=== PATIENT | male | born 1980 | race Caucasian/White ===

== ENCOUNTER 2017-05-23 11:16 | Inpatient (IN) | payer OTHER ==
[~2017-05-23] VITALS: Ht 182.9 cm; Wt 82.8 kg
[2017-05-23] VITALS (292 sets, daily range): BP systolic 103–114; BP diastolic 67–72; PULSE 101–103; TEMP 98.9; O2SAT 94–100
[~2017-05-23 11:16] MED LIST: ALEVE 220MG220 MG PO; FLORINEF ACETA0.1 MG PO; INDOCIN50 MG PO; LEVOXYL0.2 MG PO; LORTAB 7.5/5001 TAB PO; MOTRIN 800800 MG/TAB PO; PERCOCET 325 MG1 TA2 PO; PREDNISONE 2.52.5 MG PO; PREDNISONE 5MG5 MG PO; ZITHROMAX 250M250 MG PO; ZOFRAN ODT8 MG PO
[2017-05-23 12:08] LABS: HEMATOCRIT 44.8 % (42.0-52.0); MEAN CELL VOLUME 84 fl (80.0-100.0); MEAN CORPUSCULAR HEMOGLOBIN 30 pg (27.0-31.0); MEAN CORPUSCULAR HGB CONC 36 g/dl (33.0-37.0); MEAN PLATELET VOLUME 12.6 fl (7.4-10.4); PLATELET COUNT 223 K/mm3 (130-400); RED BLOOD COUNT 5.31 M/mm3 (4.20-5.60); WHITE BLOOD COUNT 15.5 K/mm3 (4.8-10.8)
[2017-05-23 12:13] LABS: ADJUSTED CALCIUM 10.5 mg/dL (8.4-10.2); ALBUMIN 5.1 gm/dL (3.5-5.0); BILIRUBIN,TOTAL 7.2 mg/dL (0.0-1.0); CALCIUM 11.4 mg/dL (8.4-10.2); CREATININE, serum 3.66 mg/dL (0.66-1.25); MAGNESIUM 1.5 mg/dL (1.6-2.3); PHOSPHOROUS 3.8 mg/dL (2.5-4.5); POTASSIUM 4.2 mmol/L (3.4-5.0); TOTAL PROTEIN 9.8 gm/dL (6.4-8.2)
[2017-05-23 12:14] LABS: ADD PATHOLOGY DIFF REVIEW NO
[2017-05-23] MEDS ORDERED: SYNTHROID0.05 MG/TA PO (12:29)
[2017-05-23 12:43] LABS: THYROID STIMULATING HORMONE 7.78 uIU/mL (0.465-4.680)
[2017-05-23 13:44] LABS: BAND 13 % (0-10); EOSINOPHIL 2 % (0-4); LYMPHOCYTE 29 % (20.0-51.0); NEUTROPHILS 45 % (42.0-75.2); TOTAL CELLS COUNTED 100
[2017-05-23 13:45] LABS: PLATELET ESTIMATE NORMAL (NORMAL)
[2017-05-23 13:56] LABS: COLLECTION METHOD CLEAN CATCH
[2017-05-23 14:21] LABS: MUCOUS Present /lpf; PH 5 (5-8); SQUAMOUS EPITHELIAL None Seen /hpf; URINE APPEARANCE Clear; URINE BACTERIA None Seen /hpf; URINE BILIRUBIN Negative (NEGATIVE); URINE BLOOD Negative (NEGATIVE); URINE COLOR Yellow; URINE GLUCOSE Negative (NEGATIVE); URINE KETONE 1+ (NEGATIVE); URINE LEUKOCYTE ESTERASE Negative (NEGATIVE); URINE PROTEIN(semi-quant) Negative (NEGATIVE); URINE UROBILINOGEN Negative (NEGATIVE)
[2017-05-23] MEDS ORDERED: PREDNISONE 2.52.5 MG PO (16:06)
[2017-05-24] VITALS (249 sets, daily range): BP systolic 97–111; BP diastolic 56–66; PULSE 73–101; TEMP 98–98.9; O2SAT 96–100
[2017-05-24 05:51] LABS: BASO % 0.1 % (0.0-2.0); GRAN % 84.6 % (42.2-75.2); LYMPH # 0.6 (1.2-3.4); LYMPH % 7.1 % (20.0-51.0); MEAN CELL VOLUME 85 fl (80.0-100.0); MEAN CORPUSCULAR HGB CONC 35 g/dl (33.0-37.0); MONO # 0.6 (0.1-0.6); MONO % 7.7 % (1.7-9.3); PLATELET COUNT 144 K/mm3 (130-400); RED BLOOD COUNT 3.64 M/mm3 (4.20-5.60); WHITE BLOOD COUNT 8.2 K/mm3 (4.8-10.8)
[2017-05-24 05:58] LABS: HEMATOCRIT 31.1 % (42.0-52.0); MEAN CORPUSCULAR HEMOGLOBIN 30 pg (27.0-31.0)
[2017-05-24 06:01] LABS: ADJUSTED CALCIUM 8.9 mg/dL (8.4-10.2); ALBUMIN 3.4 gm/dL (3.5-5.0); BILIRUBIN,TOTAL 1.1 mg/dL (0.0-1.0); CALCIUM 8.4 mg/dL (8.4-10.2); CREATININE, serum 1.43 mg/dL (0.66-1.25); POTASSIUM 4.4 mmol/L (3.4-5.0); TOTAL PROTEIN 6.9 gm/dL (6.4-8.2)
[2017-05-25 05:48] VITALS: BP 106/63; PULSE 81; TEMP 98.9
[2017-05-25 07:32] LABS: BASO % 0.2 % (0.0-2.0); EOS % 0.3 % (0-4.0); GRAN % 77.1 % (42.2-75.2); LYMPH # 0.9 (1.2-3.4); MEAN CELL VOLUME 88 fl (80.0-100.0); MEAN CORPUSCULAR HGB CONC 33 g/dl (33.0-37.0); MEAN PLATELET VOLUME 12.6 fl (7.4-10.4); MONO # 0.5 (0.1-0.6); MONO % 8.1 % (1.7-9.3); PLATELET COUNT 135 K/mm3 (130-400); RED BLOOD COUNT 3.28 M/mm3 (4.20-5.60); WHITE BLOOD COUNT 6.4 K/mm3 (4.8-10.8)
[2017-05-25 07:58] LABS: HEMOGLOBIN 9.7 g/dl (13.5-18.0); MEAN CORPUSCULAR HEMOGLOBIN 30 pg (27.0-31.0)
[2017-05-25 07:59] LABS: ADJUSTED CALCIUM 9.4 mg/dL (8.4-10.2); ALBUMIN 3.2 gm/dL (3.5-5.0); BILIRUBIN,TOTAL 0.6 mg/dL (0.0-1.0); CALCIUM 8.8 mg/dL (8.4-10.2); CREATININE, serum 0.99 mg/dL (0.66-1.25); POTASSIUM 4.2 mmol/L (3.4-5.0); TOTAL PROTEIN 6.6 gm/dL (6.4-8.2)
[2017-05-25 10:33] VITALS: BP 103/63; PULSE 92; TEMP 97.2
== END 2017-05-25 11:35 | disposition home or self-care (01) | DRG 644 ==
LOC: COL.ER 11:16 → ICU 12:32 → SURG 05-24 14:59
PROVIDERS: Emergency Medicine; Family Medicine
DX: E27.2 Addisonian crisis (principal); E87.1 Hypo-osmolality and hyponatremia; N17.9 Acute kidney failure, unspecified; E05.00 Thyrotoxicosis with diffuse goiter without thyrotoxic crisis or storm; E86.0 Dehydration; A08.4 Viral intestinal infection, unspecified
CPT/HCPCS: 99223-AI; 99233-AI; 99239; J0696; J1650; J1720; J7030; J7512

== ENCOUNTER 2017-07-10 10:02 | Emergency (ER) | payer OTHER ==
[~2017-07-10] VITALS: Ht 182.9 cm; Wt 81.8 kg
[~2017-07-10 10:02] MED LIST changes: +SYNTHROID0.05 MG/TA PO
[2017-07-10 10:10] VITALS: TEMP 98
[2017-07-10] MEDS ORDERED: TYLENOL W/COD1 UDTAB PO (10:44)
[2017-07-10] MEDS ORDERED: AMOXICILLIN 8751 TAB PO (10:44)
[2017-07-10 10:53] LABS: HEMATOCRIT 43.9 % (42.0-52.0); HEMOGLOBIN 15.7 g/dl (13.5-18.0); MEAN CELL VOLUME 83 fl (80.0-100.0); MEAN CORPUSCULAR HEMOGLOBIN 30 pg (27.0-31.0); MEAN CORPUSCULAR HGB CONC 36 g/dl (33.0-37.0); PLATELET COUNT 245 K/mm3 (130-400); REDCELL DISTRIBUTION WIDTH-CV 12.3 % (11.5-14.5)
[2017-07-10 11:05] LABS: BILIRUBIN,TOTAL 2.3 mg/dL (0.0-1.0); CREATININE, serum 1.65 mg/dL (0.66-1.25); POTASSIUM 4.3 mmol/L (3.4-5.0); TOTAL PROTEIN 9.7 gm/dL (6.4-8.2)
[2017-07-10 11:11] LABS: BAND 8 % (0-10); EOSINOPHIL 3 % (0-4); LYMPHOCYTE 19 % (20.0-51.0); NEUTROPHILS 54 % (42.0-75.2); PLATELET ESTIMATE NORMAL (NORMAL)
[2017-07-10 11:17] LABS: C-REACTIVE PROTEIN 21.5 mg/dL (0.0-0.9)
[2017-07-10 11:21] LABS: INFLUENZA A NEGATIVE; INFLUENZA B NEGATIVE
[2017-07-10 11:33] LABS: COLLECTION METHOD CLEAN CATCH
[2017-07-10 11:40] LABS: MUCOUS Present /lpf; PH 5 (5-8); SQUAMOUS EPITHELIAL None Seen /hpf; URINE APPEARANCE Clear; URINE BACTERIA None Seen /hpf; URINE BILIRUBIN Negative (NEGATIVE); URINE BLOOD Negative (NEGATIVE); URINE COLOR Yellow; URINE GLUCOSE Negative (NEGATIVE); URINE KETONE 1+ (NEGATIVE); URINE LEUKOCYTE ESTERASE Negative (NEGATIVE); URINE NITRATE Negative (NEGATIVE); URINE PROTEIN(semi-quant) Negative (NEGATIVE); URINE RBC 0-2 /hpf; URINE UROBILINOGEN Negative (NEGATIVE)
[2017-07-10] MEDS ORDERED: ZOFRAN ODT4 MG PO (12:02)
[2017-07-10 12:22] VITALS: BP 125/75; PULSE 96
== END 2017-07-10 12:22 | disposition home or self-care (01) ==
LOC: COL.ER 10:02
PROVIDERS: Family Medicine
DX: R11.10 Vomiting, unspecified (principal); E86.0 Dehydration
CPT/HCPCS: J2405; J2930; J7030

== ENCOUNTER 2019-06-06 09:20 | Emergency (ER) | payer OTHER ==
[~2019-06-06] VITALS: Ht 182.9 cm; Wt 79.7 kg
[~2019-06-06 09:20] MED LIST changes: +AMOXICILLIN 8751 TAB PO; +TYLENOL W/COD1 UDTAB PO; +ZOFRAN ODT4 MG PO
[2019-06-06 10:03] LABS: HEMATOCRIT 42.6 % (42.0-52.0); HEMOGLOBIN 14.8 g/dl (13.5-18.0); MEAN CELL VOLUME 84 fl (80.0-100.0); MEAN CORPUSCULAR HEMOGLOBIN 29 pg (27.0-31.0); MEAN CORPUSCULAR HGB CONC 35 g/dl (33.0-37.0); MEAN PLATELET VOLUME 11.6 fl (7.4-10.4); PLATELET COUNT 182 K/mm3 (130-400); RED BLOOD COUNT 5.07 M/mm3 (4.20-5.60); REDCELL DISTRIBUTION WIDTH-CV 12.1 % (11.5-14.5)
[2019-06-06 10:10] LABS: ALBUMIN 4.8 gm/dL (3.5-5.0); BILIRUBIN,TOTAL 5.4 mg/dL (0.0-1.0); CALCIUM 10.4 mg/dL (8.4-10.2); CREATININE, serum 2.18 (0.66-1.25); POTASSIUM 4.5 mmol/L (3.4-5.0)
[2019-06-06 10:22] LABS: C-REACTIVE PROTEIN 20.6 mg/dL (0.0-0.9)
[2019-06-06 10:32] LABS: STREP SCREEN POSITIVE
[2019-06-06 10:39] LABS: BAND 15 % (0-10); LYMPHOCYTE 13 % (20.0-51.0); NEUTROPHILS 64 % (42.0-75.2)
[2019-06-06 10:41] LABS: PLATELET ESTIMATE NORMAL (NORMAL)
[2019-06-06 10:43] LABS: COLLECTION METHOD CLEAN CATCH
[2019-06-06 11:07] LABS: MUCOUS Present /lpf; PH 5 (5-8); SQUAMOUS EPITHELIAL None Seen /hpf; URINE APPEARANCE Clear; URINE BACTERIA None Seen /hpf; URINE BILIRUBIN Negative (NEGATIVE); URINE BLOOD Negative (NEGATIVE); URINE COLOR Amber; URINE GLUCOSE Negative (NEGATIVE); URINE KETONE Trace (NEGATIVE); URINE LEUKOCYTE ESTERASE Negative (NEGATIVE); URINE NITRATE Negative (NEGATIVE); URINE PROTEIN(semi-quant) Negative (NEGATIVE); URINE RBC 0-2 /hpf; URINE UROBILINOGEN Negative (NEGATIVE)
[2019-06-06 12:37] VITALS: TEMP 98.8
[2019-06-06 13:25] VITALS: BP 98/66; PULSE 98
== END 2019-06-06 13:25 | disposition home or self-care (01) ==
LOC: COL.ER 09:20
PROVIDERS: Physician Assistant
DX: E86.0 Dehydration (principal); J02.0 Streptococcal pharyngitis; E03.9 Hypothyroidism, unspecified
CPT/HCPCS: J0561; J1720; J2405; J7030

== ENCOUNTER 2021-06-08 11:23 | Observation (INO) | payer OTHER ==
[~2021-06-08] VITALS: Ht 182.9 cm; Wt 72.7 kg
[2021-06-08 12:16] LABS: BASO % 0.2 % (0.0-2.0); EOS # 0.2 K/mm3 (0.0-0.7); EOS % 1.6 % (0.0-4.0); GRAN # 5.9 K/mm3 (1.4-6.5); GRAN % 62.6 % (42.2-75.2); HEMATOCRIT 42.5 % (42.0-52.0); HEMOGLOBIN 15.3 g/dl (13.5-18.0); LYMPH % 20.8 % (20.0-51.0); MEAN CELL VOLUME 80 fl (80.0-100.0); MEAN CORPUSCULAR HEMOGLOBIN 29 pg (27-31); MEAN CORPUSCULAR HGB CONC 36 g/dl (33.0-37.0); MEAN PLATELET VOLUME 11.7 fl (7.4-10.4); MONO # 1.4 K/mm3 (0.1-0.6); MONO % 14.4 % (1.7-9.3); PLATELET COUNT 143 K/mm3 (130-400); RED BLOOD COUNT 5.29 M/mm3 (4.20-5.60)
[2021-06-08 12:35] LABS: ALBUMIN 3.8 gm/dL (3.5-5.0); BILIRUBIN,TOTAL 5.1 mg/dL (0.2-1.2); CREATININE, serum 1.54 mg/dL (0.72-1.25); POTASSIUM 4.3 mmol/L (3.5-4.5); TOTAL PROTEIN 7.4 gm/dL (6.2-8.1)
[2021-06-08 14:36] LABS: COLLECTION METHOD CLEAN CATCH
[2021-06-08 15:06] LABS: MUCOUS Present (NOT PRESENT); PH 5 (5-8); SQUAMOUS EPITHELIAL None Seen /hpf (0-10); URINE APPEARANCE Clear (CLEAR/HAZY); URINE BACTERIA None Seen /hpf (NONE SEEN); URINE BILIRUBIN Negative (NEGATIVE); URINE BLOOD 1+ (NEGATIVE); URINE COLOR Yellow (YELLOW); URINE GLUCOSE Negative (NEGATIVE); URINE KETONE 1+ (NEGATIVE); URINE LEUKOCYTE ESTERASE Negative (NEGATIVE); URINE NITRATE Negative (NEGATIVE); URINE PROTEIN(semi-quant) Negative (NEGATIVE); URINE RBC 0-2 /hpf (0-2); URINE UROBILINOGEN Negative (NEGATIVE)
[2021-06-08 18:00] VITALS: BP 91/60; PULSE 90; TEMP 98.9
--- NOTE | 2021-06-08 19:33 | NUR ---
REPORT GIVEN TO [facility] OPERATOR RN.
[2021-06-08 20:28] VITALS: BP 103/64; PULSE 79; TEMP 97.8
--- NOTE | 2021-06-08 20:30 | NUR ---
Initial shift assessment done- denies pain, denies nausea/vomiting/diarrhea. Did eat some supper without nausea. No requests. IV fluids of NS at 75cc/hr. Did inform him that we need a stool specimen-- hat put in toilet, pt aware.
[2021-06-08 23:42] VITALS: BP 94/58; PULSE 70; TEMP 97.4
[2021-06-09 01:39] VITALS: BP 101/56; PULSE 75; TEMP 98.1
[2021-06-09 04:28] VITALS: BP 99/61; PULSE 72; TEMP 97.5
--- NOTE | 2021-06-09 06:12 | NUR ---
Quiet night- denies pain ,nausea, and no diarrhea tonight- VSS. B/P high 90,s systolic, IV fluids continue at 75cc/hr.
[2021-06-09 07:04] LABS: MEAN CELL VOLUME 82 fl (80.0-100.0); MEAN CORPUSCULAR HGB CONC 35 g/dl (33.0-37.0); MEAN PLATELET VOLUME 11.8 fl (7.4-10.4); PLATELET COUNT 129 K/mm3 (130-400); RED BLOOD COUNT 4.34 M/mm3 (4.20-5.60)
[2021-06-09 07:25] LABS: ALBUMIN 3.3 gm/dL (3.5-5.0); CALCIUM 8.4 mg/dL (8.4-10.2); CREATININE, serum 1.12 mg/dL (0.72-1.25); MAGNESIUM 1.7 mg/dL (1.6-2.6); PHOSPHOROUS 1.9 mg/dL (2.3-4.7); POTASSIUM 4.2 mmol/L (3.5-4.5)
[2021-06-09 07:28] LABS: HEMATOCRIT 35.4 % (42.0-52.0); HEMOGLOBIN 12.5 g/dl (13.5-18.0); MEAN CORPUSCULAR HEMOGLOBIN 29 pg (27-31)
--- NOTE | 2021-06-09 07:57 | NUR ---
PT IS AWAKE AND DENIES ANY NEEDS AT THIS TIME. WILL CONTINUE TO MONITOR. ASSESSMENT COMPLETED.
[2021-06-09 08:10] VITALS: BP 105/60; PULSE 84; TEMP 97.2
[2021-06-09 08:55] LABS: BAND 14 % (0-10); LYMPHOCYTE 3 % (20.0-51.0); NEUTROPHILS 81 % (42.0-75.2); PLATELET ESTIMATE DECREASED (NORMAL)
[2021-06-09 12:17] VITALS: BP 101/61; PULSE 88; TEMP 97.3
[2021-06-09] MEDS ORDERED: ZOFRAN 4MG T4 MG/TAB PO (13:48)
[2021-06-09] MEDS ORDERED: PREDNISONE10 MG PO (15:11)
== END 2021-06-09 16:30 | disposition home or self-care (01) ==
LOC: COL.ER 11:23 → MEDICAL 14:16
PROVIDERS: Family Medicine; ADMIT Internal Medicine
DX: K52.9 Noninfective gastroenteritis and colitis, unspecified (principal); I95.9 Hypotension, unspecified; E86.0 Dehydration; E27.1 Primary adrenocortical insufficiency; E03.9 Hypothyroidism, unspecified; Z79.890 Hormone replacement therapy; Z20.822 Contact with and (suspected) exposure to COVID-19; Z79.899 Other long term (current) drug therapy; Z90.89 Acquired absence of other organs
CPT/HCPCS: G0378; J1720; J2930; J7030